=== PATIENT | male | born 1960 | race Caucasian/White ===

== ENCOUNTER 2019-11-25 15:20 | Emergency (ER) | payer BC ==
[~2019-11-25] VITALS: Ht 177.8 cm; Wt 88.5 kg
[2019-11-25 15:40] VITALS: Ht 177.8 cm; Wt 88.5 kg
[2019-11-25 18:14] VITALS: BP 123/83
== END 2019-11-25 18:14 | disposition home or self-care (01) ==
LOC: ED 15:20
DX: M54.5 Low back pain (principal); M62.830 Muscle spasm of back; W01.0XXA Fall on same level from slipping, tripping and stumbling without subsequent striking against object, initial encounter; Y93.89 Activity, other specified; Y92.89 Other specified places as the place of occurrence of the external cause; Y99.8 Other external cause status
CPT/HCPCS: 72072; J1885; Q0092